=== PATIENT | female | born 1995 | race Two or more races ===

== ENCOUNTER 2024-04-29 01:02 | Emergency (ER) | payer MEDICAID, SELFPAY ==
[2024-04-29 01:02] VITALS: BMI 26.1
[2024-04-29 01:24] VITALS: BP 121/72; PULSE 110; RESP 18; TEMP 36.6; O2SAT 98
--- NOTE | 2024-04-29 01:31 | EKG_ITS ---
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
[2024-04-29] MEDS: DEXAMETHASONE SOD PHOS INJ 10 MG/ML VIAL PO (01:36)
--- NOTE | 2024-04-29 01:38 | XR_ITS ---
Examination: AP chest single view Technique one AP portable upright chest single view Exam date and time: April 29, 2024 0145 hours Comparison August 25, 2023 INDICATIONS: Onset shortness of breath today FINDINGS: Normal heart size. Lungs are clear. The osseous structures are intact IMPRESSION: No active disease
[2024-04-29 02:17] LABS: Basophils # (Auto) 0.1 Thou/mm3 (0.0-0.2); Basophils % (Auto) 1 % (0-2.5); Eosinophils # (Auto) 0.1 Thou/mm3 (0.0-0.5); Eosinophils % (Auto) 1 % (0-10); Hematocrit 34.3 % (36.0-46.0); Hemoglobin 11.3 g/dL (12.0-16.0); Immature Granulocytes % (Auto) 0 % (0-0); Immature Granulocytes Auto 0.02 Thou/mm3 (0.00-0.00); Lymphocytes # (Auto) 2.7 Thou/mm3 (1.0-4.8); Lymphocytes % (Auto) 26 % (10-50); Mean Corpuscular HGB Conc 32.9 g/dl (31.0-37.0); Mean Corpuscular Hemoglobin 30.5 pg (25.0-35.0); Mean Corpuscular Volume 93 fL (80-100); Monocytes # (Auto) 0.6 Thou/mm3 (0.0-0.8); Monocytes % (Auto) 6 % (0-12); Neutrophils # (Auto) 6.7 Thou/mm3 (1.8-7.7); Neutrophils % (Auto) 66 % (37-80); Nucleated Red Blood Cell % 0 /100 WBC (0); Platelet Count 375 Thou/mm3 (140-440); White Blood Count 10.3 Thou/mm3 (3.6-11.0)
[2024-04-29 02:30] LABS: Alanine Aminotransferase 17 U/L (10-49); Albumin, Serum 4.7 gm/dL (3.5-5.0); Albumin/Globulin Ratio 1.7 (1.2-2.2); Alkaline Phosphatase 58 U/L (46-116); Anion Gap 8 (7-16); Aspartate Amino Transferase 17 U/L (0-34); BUN/Creatinine Ratio 13 Ratio (12-20); Bilirubin,Total 0.3 mg/dL (0.3-1.2); Blood Urea Nitrogen 10 mg/dL (9-23); Calcium 10.1 mg/dL (8.3-10.6); Calcium (Corrected) 10.1 mg/dL (8.5-10.1); Carbon Dioxide 26.8 mMol/L (20.0-31.0); Chloride 103 mMol/L (98-107); Creatinine (Component) 0.8 mg/dL (0.6-1.3); Globulin 2.7 gm/dL (2.3-3.5); Glucose 76 mg/dL (74-106); Osmolality,Calculated 273 (275-295); Potassium 3.9 mMol/L (3.4-5.1); Sodium 138 mMol/L (136-145); Total Protein 7.4 gm/dL (5.7-8.2); Troponin I < 0.020 ng/mL (0.0-0.045); eGFR > 60 See Note
[2024-04-29 02:33] LABS: D-Dimer < 250 ng/mL (<600)
[2024-04-29 03:28] VITALS: PULSE 93; RESP 18; O2SAT 99
[2024-04-29] MEDS: ALBUTEROL/IPRATROPIUM (Duoneb) RT SOL 3 ML NEBU 6 ML INH (03:28)
--- NOTE | 2024-04-29 05:41 | EDNOTE_ITS ---
ED Asthma RME/HPI General Chief Complaint: Shortness of Breath/Dyspnea Stated Complaint: SOB Time Seen by Provider: 04/29/24 01:30 Arrival date/time: 04/29/24 01:02 28F with history of astham presents to ED with 1 day of SOB and chest tightness. Limitations: no limitations Related Data Home Medications ?Medication ?Instructions ?Recorded ?Confirmed prenat.vits,hernesto,[id number] 1 tab PO QDAY 01/19/23 01/19/23 amoxicillin 875 mg-potassium tab 02/16/23 clavulanate 125 mg tablet clotrimazole-betamethasone 1 applic topical 02/16/23 %-0.05 % topical cream ferrous sulfate 325 mg (65 mg mg 02/16/23 iron) tablet (FeroSul) vitamins no.170-iron 1 tab PO QDAY 02/16/23 02/16/23 fumarate 27 mg-folic acid 1 mg tablet (DermacinRx Prenatrix) Previous Rx's ?Medication ?Instructions ?Recorded hydrocodone 5 mg-acetaminophen 325 1 tab PO Q6H PRN pain #14 tabs 07/09/23 mg tablet ibuprofen 800 mg tablet 800 mg PO Q8H PRN pain #20 tabs 07/09/23 ondansetron 4 mg disintegrating 4 mg PO Q8H PRN nausea and 08/24/23 tablet vomiting #10 tabs pantoprazole 20 mg tablet,delayed 20 mg PO QDAY #30 tabs 08/25/23 release (Protonix) ondansetron 4 mg disintegrating 4 mg PO Q6H PRN nausea and 08/26/23 tablet vomiting #14 tabs albuterol sulfate 90 mcg/actuation 2 puff inhalation Q6H PRN 04/29/24 aerosol inhaler (Ventolin HFA) shortness of breath or wheezing #8.5 grams Allergies Allergy/AdvReac Type Severity Reaction Status Date / Time No Known Allergies Allergy Verified 08/25/23 11:24 Review of Systems Review of Systems Systems Reviewed: All systems reviewed, normal except as documented Constitutional Constitutional: Reports system reviewed and no additional complaints, except as documented, Denies fever(s) and Denies headache(s) ENT Ears, Nose, Mouth, and Throat: Denies disequilibrium and Denies headache(s) Cardiovascular Cardiovascular: Reports system reviewed and no additional complaints, except as documented, Reports as per HPI, Reports chest pain (tightness) and Reports dyspnea Respiratory Respiratory: Reports system reviewed and no additional complaints, except as documented, Reports as per HPI, Denies cough and Reports dyspnea Gastrointestinal Gastrointestinal: Reports system reviewed and no additional complaints, except as documented, Denies abdominal pain, Denies nausea and Denies vomiting Neurologic Neurologic: Reports system reviewed and no additional complaints, except as documented, Denies confusion, Denies disequilibrium and Denies headache(s) Psychiatric Psychiatric: Denies confusion Past Medical History Past Medical History NEUROLOGIC: Negative Neurological Disorders or Seizures CARDIAC: Positive Cardiac Arrhythmia and Angina; Negative Cardiac Disorders or Congestive Heart Failure RESPIRATORY: Negative Chronic Obstructive Pulmonary Disease (COPD) or Asthma GASTROINTESTINAL: Positive Gastrointestinal Disorders and Obesity GENITOURINARY: Negative Genitourinary Disorders or Renal Disease REPRODUCTIVE: Positive Previous Pregnancies; Negative Endometriosis or Pelvic Inflammatory Disease MUSCULOSKELETAL: Negative Musculoskeletal Disorders ENDOCRINE: Negative Endocrine Disorders, Diabetes Mellitus Type 1 or Diabetes Mellitus Type 2 HEMATOLOGIC: Negative Blood Disorders or Sickle Cell Disease OTHER HISTORY: Positive Hospitalization; Negative Autoimmune Disease, Down Syndrome, Developmental Delay, Shingles, Falls, Blood Transfusions, Blood Transfusion Reaction, Anesthesia Reactions, Chemotherapy, Hyperbaric Therapy, MRSA, VRSA, Vancomycin-Resistant Enterococci, Clostridium Difficile or Cancer Family History FAMILY HISTORY: Positive Family Psychiatric Problems, Family Respiratory Disorders, Family Cancer and Family Surgery; Negative Family Cardiac Disorders, Family Gastrointestinal Problems or Family Anesthesia Reaction Surgical History SURGICAL: Positive Section; Negative Cardiac Surgery, Open Heart Surgery, Coronary Artery Bypass Graft, Endocrine Surgery, Thyroidectomy, Ear Surgery, Abdominal Surgery, Nephrectomy, Joint Replacement, Neurologic Surgery, Brain Shunt or Mastectomy Social History SMOKING STATUS: Never smoker SECOND HAND EXPOSURE: No SUBSTANCE USE: does not use ED Exam General Limitations: Present no limitations General appearance: Present alert and in no apparent distress Head Head exam: Present atraumatic Eye Eye exam: Present normal appearance, PERRL and EOMI ENT ENT exam: Present normal exam, normal oropharynx and mucous membranes moist Neck Neck exam: Present normal inspection, full ROM and trachea midline Chest Chest inspection: Present normal inspection and symmetric chest wall rise Respiratory Respiratory exam: Present normal lung sounds bilaterally and prolonged expiratory phase Cardiovascular Cardiovascular exam: Present regular rate, normal rhythm and normal heart sounds Abdominal Exam Abdominal exam: Present soft and normal bowel sounds Extremities Exam Extremities exam: Present normal inspection and full ROM Back Exam Back exam: Present normal inspection and full ROM Neurological Exam Neurological exam: Present alert, oriented X3 and CN II-XII intact Psychiatric Psychiatric exam: Present normal affect and normal mood Skin Skin exam: Present warm, dry, intact and normal color Course Quality Measures none Orders Category Date Time Status EKG (ED ONLY) *Do not use* NOW Care 04/29/24 01:31 Active EKG (ED Only) Stat Exams 04/29/24 01:31 Draft XR chest 1V portable Stat Exams 04/29/24 01:38 Taken CBC Stat Lab 04/29/24 01:51 Completed CMP [Comprehensive Metabolic Panel] Stat Lab 04/29/24 01:51 Completed D-Dimer Stat Lab 04/29/24 01:51 Completed Troponin I Stat Lab 04/29/24 01:51 Completed Albuterol/Ipratr Rt Kelley [Duoneb Rt Kelley] Med 04/29/24 03:17 Discontinued 6 ml INH X1 ONE Dexamethasone Inj [Decadron Inj] Med 04/29/24 01:31 Discontinued 10 mg PO X1 ONE Vital Signs Vital signs: Vital Signs Temperature 97.9 F 04/29/24 01:24 Pulse Rate 110 H 04/29/24 01:24 Respiratory Rate 18 04/29/24 01:24 Blood Pressure 121/72 04/29/24 01:24 Pulse Oximetry (%) 98 04/29/24 01:24 Oxygen Delivery Method Room Air 04/29/24 01:24 Asthma MDM Narrative MDM Narrative:: 28F with history of astham presents to ED with 1 day of SOB and chest tightness. Physical exam reveals clear ENT and lungs. Prolonged expiration. Patient is afebrile, calm, and alert. EKG is NSR. No leukocytosis. Mild anemia. Normal trop and D-dimer. Wet CXR read normal pending official report. Meds relieved symptoms. Patient data External records reviewed:: [facility] previous records Clinical information provided by:: patient Social determinants that could affect healthcare access:: none Patient has the following chronic illnesses:: asthma How is presenting disease/condition affected by chronic disease/condition?: exacerbated by Evaluation data The following diagnostics were reviewed and interpreted by me:: lab results, ra diology exam(s) and EKG tracing(s) Lab and/or radiology exams considered but not ordered:: ordered Interpretation Summary: above Medications / Prescriptions Medications or Prescriptions considered but not ordered:: ordered Medication administrations:: Medication Administration History Discontinued Medications Albuterol/Ipratropium (Albuterol/Ipratropium (Duoneb) Rt Kelley 3 Ml Nebu) 6 ml INH X1 ONE Stop: 04/29/24 03:18 Last Admin: 04/29/24 03:28 Dose: 6 ml Documented By: NE Dexamethasone Sodium Phosphate (Dexamethasone Sod Phos Inj 10 Mg/Ml Vial) 10 mg PO X1 ONE Stop: 04/29/24 01:32 Last Admin: 04/29/24 01:36 Dose: 10 mg Documented By: DB Comments: Med given PO Consultations Consultation(s) initiated? (list below): No Diagnosis Differential diagnosis asthma: Acute exacerbation, Status asthmaticus, Acute asthmatic bronchitis, PE, Pneumonia, COPD exacerbation, Pulmonary edema systolic, Pulmonary edema dystolic, ARDS, Pneumothorax and Foreign body in trachea Most likely diagnosis given after review of the tests above:: asthma exacerbation Admission Indicated Admission indicated?: not indicated Admission Request Was there a request for admission?: No Disposition Plan Disposition Plan: Discharge Discharge Attestation Discharge Attestation: The patient and all family members were given an opportunity to ask questions and understood the discharge instructions. Discharge instructions specifically effects, indications for sooner follow up or return to the emergency department, and the expected course of current diagnosis. Patient condition: Stable Discharge Plan Plan Patient Disposition: HOME (Self Care) Disposition Comment: Stable Prescriptions/Referrals Prescriptions/Med Rec: New albuterol sulfate [Ventolin HFA] 90 mcg/actuation HFA aerosol inhaler 2 puff inhalation Q6H PRN (Reason: shortness of breath or wheezing) Qty: 8.5 0RF No Action ferrous sulfate [FeroSul] 325 mg (65 mg iron) tablet Patient Comments: TAKE ONE TABLET BY MOUTH EVERY DAY clotrimazole-betamethasone 1-0.05 % cream TOPICAL Patient Comments: APPLY topically EVERY EVENING FOR TWO WEEKS TO THE affected AND surrounding AREAS of SKIN amoxicillin-pot clavulanate 875-125 mg tablet Patient Comments: TAKE ONE TABLET BY MOUTH EVERY TWELVE HOURS DermacinRx Prenatrix 27 mg iron- 1 mg tablet 1 tab PO QDAY Patient Comments: TAKE ONE TABLET BY MOUTH EVERY DAY VITAMIN ibuprofen 800 mg tablet 800 mg PO Q8H PRN (Reason: pain) Qty: 20 0RF hydrocodone-acetaminophen 5-325 mg tablet 1 tab PO Q6H MDD 3 PRN (Reason: pain) Qty: 14 0RF ondansetron 4 mg tablet,disintegrating 4 mg PO Q8H PRN (Reason: nausea and vomiting) Qty: 10 0RF pantoprazole [Protonix] 20 mg tablet,delayed release (DR/EC) 20 mg PO QDAY Qty: 30 0RF prenat.vits,hernesto,[id number]-[id number]-tyffs Tablet 1 tab PO QDAY ondansetron 4 mg tablet,disintegrating 4 mg PO Q6H PRN (Reason: nausea and vomiting) Qty: 14 0RF Problem List Clinical Impression: Asthma with exacerbation Patient/Caregiver Discharge Instructions Additional Instructions: Please follow-up with PCP within 24-48 hours and return immediately if symptoms worsen. Print Language: Algerian Stand Alone Forms: Patient Portal Info Letter BELÉN/GIOVANNI Supervising Physician BELÉN/GIOVANNI Supervising Physician: Dr. King
== END 2024-04-29 04:22 | disposition home or self-care (01) ==
LOC: SERX 05:19
PROVIDERS: Physician Assistant; Emergency Provider Emergency Medicine; PCP Physician Assistant Medical
DX: J45.901 Unspecified asthma with (acute) exacerbation (principal); I49.8 Other specified cardiac arrhythmias
CPT/HCPCS: 36415; 71045; 80053; 84484; 85025; 85379; 93005; 94640; 99283; A9270; J1100

== ENCOUNTER 2024-05-05 14:17 | Emergency (ER) | payer MEDICAID, SELFPAY ==
[2024-05-05 14:26] VITALS: BP 111/74; PULSE 71; RESP 20; TEMP 36.4; O2SAT 100; BMI 26.1
--- NOTE | 2024-05-05 14:26 | XR_ITS ---
Examination: CT abdomen and pelvis without contrast. Coronal 3-D reconstructions. Sagittal 2-D reconstructions. Date and time of exam:May 05, 2024 1532 hours Comparison March 12, 2023 INDICATIONS: Right-sided flank pain beginning 3 days ago CTDI: vol (mGy): 6.42 DLP: (mGycm): 350 Technique: Axial images of the abdomen have been obtained, 3 mm slice thickness Intravenous contrast material has not been administered. Low dose protocols were performed. One or more of the following dose reduction techniques were used; automated exposure control, adjustment of the mA and/or KV according to patient size, use of iterative reconstruction technique. Findings: Fatty infiltration throughout the liver, no focal liver lesions No gallstones No pancreatic or adrenal mass No renal or ureteral calculi, no hydronephrosis Aorta normal size Normal appendix No bowel obstruction No diverticulitis Anteverted uterus No adnexal mass Contracted urinary bladder IMPRESSION: No renal or ureteral calculi, no hydronephrosis Normal appendix No bladder mass or bladder calculi
[2024-05-05 14:53] LABS: Collection Type, Urine Clean Catch
[2024-05-05 14:54] LABS: Basophils # (Auto) 0.1 Thou/mm3 (0.0-0.2); Basophils % (Auto) 1 % (0-2.5); Eosinophils # (Auto) 0.1 Thou/mm3 (0.0-0.5); Eosinophils % (Auto) 1 % (0-10); Hematocrit 36.8 % (36.0-46.0); Hemoglobin 12.3 g/dL (12.0-16.0); Immature Granulocytes % (Auto) 0 % (0-0); Immature Granulocytes Auto 0.02 Thou/mm3 (0.00-0.00); Lymphocytes # (Auto) 2.8 Thou/mm3 (1.0-4.8); Lymphocytes % (Auto) 30 % (10-50); Mean Corpuscular HGB Conc 33.4 g/dl (31.0-37.0); Mean Corpuscular Hemoglobin 30.1 pg (25.0-35.0); Mean Corpuscular Volume 90 fL (80-100); Monocytes # (Auto) 0.6 Thou/mm3 (0.0-0.8); Monocytes % (Auto) 7 % (0-12); Neutrophils # (Auto) 5.8 Thou/mm3 (1.8-7.7); Neutrophils % (Auto) 62 % (37-80); Nucleated Red Blood Cell % 0 /100 WBC (0); Platelet Count 341 Thou/mm3 (140-440); RDW Standard Deviation 43.4 fL (36.4-46.3); Red Blood Count 4.08 Miln/mm3 (4.00-5.20); White Blood Count 9.3 Thou/mm3 (3.6-11.0)
--- NOTE | 2024-05-05 15:00 | PD.EDABDPN ---
ED Abdominal Pain RME/HPI General Chief Complaint: Back Pain/Injury Stated complaint: RIGHT SIDED FLANK PAIN, NAUSEA Time seen by provider: 05/05/24 14:18 Arrival date/time: 05/05/24 14:17 RME / HPI RME / HPI narrative: This section includes all my notes and documentations, including HPI, PE, and ED course. Jeronimo Obrien MD HPI: 28-year-old female here with a couple day history of right flank pain. No fever or chills. No nausea or vomiting. Urine has been dark and cloudy. No dysuria or other urinary symptoms. No other complaints. ROS: All negative except as documented in HPI. Physical Exam: General: Alert and oriented. No acute distress when remaining still. Eyes: Conjunctivae and lids clear. ENT: No nasal congestion. Neck: Supple. Heart: RRR. Lungs: No respiratory distress. Good air movement. No rhonchi, wheezing, rales. Abdomen: Soft and nontender. Normal bowel sounds. No distension. No rebound or guarding. Back: No CVA tenderness. Skin: Warm and dry. Neuro: Alert and oriented X 3. I reviewed all diagnostic test results. My review of the abdominal CT report is no acute findings. Blood tests unremarkable. UA showed positive nitrite and leukocyte Estrace and WBC and bacteria. At this point, diagnoses include right pyelonephritis. Treatment here included Rocephin 1 g IM. Recommended a trial of treatment at home. Based on my best medical judgment, made decision no further evaluation or treatment indicated at this time. Patient understands and agrees to the discharge instructions customized and printed, see below. Discharge instructions from Dr. Obrien: 1. After evaluation, you have left kidney infection. 2. Take cefdinir to kill the germs causing the infection.? Increase oral fluid to flush it out.? Maintain clear urine.? If dark or yellow, increase oral fluid. 3. See a private doctor on 05/09/2024 for recheck.? Ask to check the final urine culture results from today to make sure cefdinir doesn't need to be changed due to resistance. 4. Seek immediate medical care with worsening, fever, or with any concerns. Jeronimo Obrien MD Related Data Home Medications ?Medication ?Instructions ?Recorded ?Confirmed prenat.vits,hernesto,iwr-[id number] 1 tab PO QDAY 01/19/23 01/19/23 amoxicillin 875 mg-potassium tab 02/16/23 clavulanate 125 mg tablet clotrimazole-betamethasone 1 applic topical 02/16/23 %-0.05 % topical cream ferrous sulfate 325 mg (65 mg mg 02/16/23 iron) tablet (FeroSul) vitamins no.170-iron 1 tab PO QDAY 02/16/23 02/16/23 fumarate 27 mg-folic acid 1 mg tablet (DermacinRx Prenatrix) Previous Rx's ?Medication ?Instructions ?Recorded hydrocodone 5 mg-acetaminophen 325 1 tab PO Q6H PRN pain #14 tabs 07/09/23 mg tablet ibuprofen 800 mg tablet 800 mg PO Q8H PRN pain #20 tabs 07/09/23 ondansetron 4 mg disintegrating 4 mg PO Q8H PRN nausea and 08/24/23 tablet vomiting #10 tabs pantoprazole 20 mg tablet,delayed 20 mg PO QDAY #30 tabs 08/25/23 release (Protonix) ondansetron 4 mg disintegrating 4 mg PO Q6H PRN nausea and 08/26/23 tablet vomiting #14 tabs albuterol sulfate 90 mcg/actuation 2 puff inhalation Q6H PRN 04/29/24 aerosol inhaler (Ventolin HFA) shortness of breath or wheezing #8.5 grams cefdinir 300 mg capsule 300 mg PO BID #14 caps 05/05/24 Allergies Allergy/AdvReac Type Severity Reaction Status Date / Time No Known Allergies Allergy Verified 08/25/23 11:24 Course Quality Measures none Orders Category Date Time Status CT abdomen pelvis wo con Stat Exams 05/05/24 14:26 Completed Amylase Stat Lab 05/05/24 14:48 Completed CBC Stat Lab 05/05/24 14:48 Completed CMP [Comprehensive Metabolic Panel] Stat Lab 05/05/24 14:48 Completed D-Dimer Stat Lab 05/05/24 14:48 Completed Lipase Stat Lab 05/05/24 14:48 Completed Magnesium Stat Lab 05/05/24 14:48 Completed UA [Urinalysis] Stat Lab 05/05/24 14:38 Completed cefTRIAXone [Rocephin] 1,000 mg Med 05/05/24 16:17 Discontinued Lidocaine 1% 20 ml [Xylocaine 1% 20 ML] 2.1 ml IM X1 Vital Signs Vital signs: Vital Signs Temperature 97.6 F 05/05/24 14:26 Pulse Rate 71 05/05/24 14:26 Respiratory Rate 20 05/05/24 14:26 Blood Pressure 111/74 05/05/24 14:26 Pulse Oximetry (%) 100 05/05/24 14:26 Oxygen Delivery Method Room Air 05/05/24 14:26 Abdominal Pain MDM Patient data External records reviewed:: [facility] previous records Clinical information provided by:: patient Social determinants that could affect healthcare access:: none Patient has the following chronic illnesses:: See chart How is presenting disease/condition affected by chronic disease/condition?: uneffected by Evaluation data The following diagnostics were reviewed and interpreted by me:: lab results and radiology exam(s) Lab and/or radiology exams considered but not ordered:: None Interpretation Summary: Pyelonephritis Medications / Prescriptions Medications or Prescriptions considered but not ordered:: None Medication administrations:: Medication Administration History Discontinued Medications Ceftriaxone Sodium 1,000 mg/ (Lidocaine HCl 2.1 ml) 0 mg IM X1 ONE Stop: 05/05/24 16:18 Last Admin: 05/05/24 16:26 Dose: 2.1 mg Documented By: MARRY Rocephin Consultations Consultation(s) initiated? (list below): No Diagnosis Differential diagnosis abdominal pain: acute appendicitis, calculus of kidney, constipation, diverticulitis, endometriosis, gastroenteritis, pancreatitis, small bowel obstruction and other (UTI, pyelonephritis) Most likely diagnosis given after review of the tests above:: Pyelonephritis Admission Indicated Admission indicated?: not indicated Explain why admission is indicated or not indicated:: Admission criteria not met Admission Request Was there a request for admission?: No Disposition Plan Disposition Plan: Discharge Discharge Attestation Discharge Attestation: The patient and all family members were given an opportunity to ask questions and understood the discharge instructions. Discharge instructions specifically effects, indications for sooner follow up or return to the emergency department, and the expected course of current diagnosis. Patient condition: Stable Discharge Plan Plan Patient Disposition: HOME (Self Care) Prescriptions/Referrals Prescriptions/Med Rec: New cefdinir 300 mg capsule 300 mg PO BID Qty: 14 0RF No Action ferrous sulfate [FeroSul] 325 mg (65 mg iron) tablet Patient Comments: TAKE ONE TABLET BY MOUTH EVERY DAY clotrimazole-betamethasone 1-0.05 % cream TOPICAL Patient Comments: APPLY topically EVERY EVENING FOR TWO WEEKS TO THE affected AND surrounding AREAS of SKIN amoxicillin-pot clavulanate 875-125 mg tablet Patient Comments: TAKE ONE TABLET BY MOUTH EVERY TWELVE HOURS DermacinRx Prenatrix 27 mg iron- 1 mg tablet 1 tab PO QDAY Patient Comments: TAKE ONE TABLET BY MOUTH EVERY DAY VITAMIN ibuprofen 800 mg tablet 800 mg PO Q8H PRN (Reason: pain) Qty: 20 0RF hydrocodone-acetaminophen 5-325 mg tablet 1 tab PO Q6H MDD 3 PRN (Reason: pain) Qty: 14 0RF ondansetron 4 mg tablet,disintegrating 4 mg PO Q8H PRN (Reason: nausea and vomiting) Qty: 10 0RF pantoprazole [Protonix] 20 mg tablet,delayed release (DR/EC) 20 mg PO QDAY Qty: 30 0RF albuterol sulfate [Ventolin HFA] 90 mcg/actuation HFA aerosol inhaler 2 puff inhalation Q6H PRN (Reason: shortness of breath or wheezing) Qty: 8.5 0RF prenat.vits,hernesto,[id number] Tablet 1 tab PO QDAY ondansetron 4 mg tablet,disintegrating 4 mg PO Q6H PRN (Reason: nausea and vomiting) Qty: 14 0RF Referrals: Delphine Little PA-C [Primary Care Provider] - In 1 week Problem List Clinical Impression: Pyelonephritis of right kidney Patient/Caregiver Discharge Instructions Discharge Activity: activity as tolerated Education Materials: ED Pyelonephritis, Female (Adult) Additional Instructions: Discharge instructions from Dr. Obrien: 1. After evaluation, you have left kidney infection. 2. Take cefdinir to kill the germs causing the infection.? Increase oral fluid to flush it out.? Maintain clear urine.? If dark or yellow, increase oral fluid. 3. See a private doctor on 05/09/2024 for recheck.? Ask to check the final urine culture results from today to make sure cefdinir doesn't need to be changed due to resistance. 4. Seek immediate medical care with worsening, fever, or with any concerns. Print Language: Estonian Stand Alone Forms: Sarah Award Info., Patient Portal Info Letter
[2024-05-05 15:19] LABS: Bacteria,Urine Rare; Bilirubin,Urine Negative (Negative); Blood,Urine 1+ (Negative); Color,Urine Lt-Yellow (Lt Yel-Yel); Glucose, Urine Negative (Negative); Ketones,Urine 2+ (Negative); Leukocyte Esterase,Urine Positive (Negative); Nitrite,Urine Positive (Negative); PH,Urine 5.5 (5.0-7.0); Protein,Urine 1+ (Neg - Trace); RBC,Urine 11 /hpf (0-3); Specific Gravity,Urine 1.019 (1.001-1.035); Squamous Epithelial Cell,Urine 3 /hpf (0-5); Urobilinogen,Urine Negative mg/dL (0.0-1.0); WBC,Urine 102 /hpf (0-5)
[2024-05-05 15:20] LABS: Alanine Aminotransferase 15 U/L (10-49); Albumin, Serum 4.9 gm/dL (3.5-5.0); Albumin/Globulin Ratio 1.7 (1.2-2.2); Alkaline Phosphatase 59 U/L (46-116); Amylase 40 U/L (30-118); Anion Gap 8 (7-16); Aspartate Amino Transferase 16 U/L (0-34); BUN/Creatinine Ratio 17 Ratio (12-20); Bilirubin,Total 0.5 mg/dL (0.3-1.2); Blood Urea Nitrogen 12 mg/dL (9-23); Calcium 9.7 mg/dL (8.3-10.6); Calcium (Corrected) 9.7 mg/dL (8.5-10.1); Carbon Dioxide 26.3 mMol/L (20.0-31.0); Chloride 102 mMol/L (98-107); Creatinine (Component) 0.7 mg/dL (0.6-1.3); Estimated Creatinine Clearance 89.2 mL/min (>60); Globulin 2.9 gm/dL (2.3-3.5); Glucose 72 mg/dL (74-106); Lipase 29 U/L (12-53); Osmolality,Calculated 270 (275-295); Potassium 3.6 mMol/L (3.4-5.1); Sodium 136 mMol/L (136-145); Total Protein 7.8 gm/dL (5.7-8.2); eGFR > 60 See Note
[2024-05-05 15:35] LABS: Clarity,Urine Hazy (Clear/Hazy)
[2024-05-05 15:57] LABS: D-Dimer < 250 ng/mL (<600)
[2024-05-05] MEDS: cefTRIAXone 1,000 MG, LIDOCAINE 1% 20 ML 2.1 ML IM (16:26)
== END 2024-05-05 18:18 | disposition home or self-care (01) ==
PROVIDERS: Emergency Provider Emergency Medicine; PCP Physician Assistant Medical
DX: N12 Tubulo-interstitial nephritis, not specified as acute or chronic (principal)
CPT/HCPCS: 36415; 74176; 80053; 81001; 82150; 83690; 83735; 85025; 85379; 87077; 87086; 87186; 96372; 99284; J0696; J3490

== ENCOUNTER 2024-06-09 08:44 | Emergency (ER) | payer MEDICAID, SELFPAY ==
[2024-06-09 08:57] VITALS: BP 107/69; PULSE 86; RESP 16; TEMP 36.9; O2SAT 100; BMI 26.2
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
[2024-06-09] MEDS: ACETAMINOPHEN 500 MG TABLET 1000 MG PO (09:48)
== END 2024-06-09 10:09 | disposition home or self-care (01) ==
PROVIDERS: Emergency Provider Emergency Medicine; PCP Physician Assistant Medical
DX: S79.922A Unspecified injury of left thigh, initial encounter (principal); S79.911A Unspecified injury of right hip, initial encounter; V89.9XXA Person injured in unspecified vehicle accident, initial encounter
CPT/HCPCS: 73501; 73552; 99283; A9270

== ENCOUNTER 2024-06-10 15:29 | Emergency (ER) | payer MEDICAID, SELFPAY ==
[2024-06-10 15:30] VITALS: BMI 27.1
[2024-06-10 15:37] VITALS: BP 108/58; PULSE 78; RESP 18; TEMP 36.8; O2SAT 100
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
[2024-06-10 16:47] LABS: Basophils # (Auto) 0.1 Thou/mm3 (0.0-0.2); Basophils % (Auto) 1 % (0-2.5); Eosinophils # (Auto) 0.1 Thou/mm3 (0.0-0.5); Eosinophils % (Auto) 1 % (0-10); Hematocrit 33.7 % (36.0-46.0); Immature Granulocytes % (Auto) 0 % (0-0); Immature Granulocytes Auto 0.02 Thou/mm3 (0.00-0.00); Lymphocytes # (Auto) 3.4 Thou/mm3 (1.0-4.8); Lymphocytes % (Auto) 42 % (10-50); Mean Corpuscular HGB Conc 32.6 g/dl (31.0-37.0); Mean Corpuscular Hemoglobin 28.7 pg (25.0-35.0); Mean Corpuscular Volume 88 fL (80-100); Monocytes # (Auto) 0.5 Thou/mm3 (0.0-0.8); Monocytes % (Auto) 6 % (0-12); Neutrophils % (Auto) 50 % (37-80); Nucleated Red Blood Cell % 0 /100 WBC (0); Platelet Count 294 Thou/mm3 (140-440); RDW Standard Deviation 44.8 fL (36.4-46.3); Red Blood Count 3.83 Miln/mm3 (4.00-5.20)
[2024-06-10 17:08] LABS: Alanine Aminotransferase 32 U/L (10-49); Albumin, Serum 4.5 gm/dL (3.5-5.0); Albumin/Globulin Ratio 1.7 (1.2-2.2); Alkaline Phosphatase 68 U/L (46-116); Anion Gap 6 (7-16); Aspartate Amino Transferase 29 U/L (0-34); BUN/Creatinine Ratio 22 Ratio (12-20); Bilirubin,Total 0.2 mg/dL (0.3-1.2); Blood Urea Nitrogen 13 mg/dL (9-23); Calcium 9.1 mg/dL (8.3-10.6); Calcium (Corrected) 9.1 mg/dL (8.5-10.1); Carbon Dioxide 28.8 mMol/L (20.0-31.0); Chloride 104 mMol/L (98-107); Creatinine (Component) 0.6 mg/dL (0.6-1.3); Estimated Creatinine Clearance 105.1 mL/min (>60); Globulin 2.6 gm/dL (2.3-3.5); Glucose 88 mg/dL (74-106); Osmolality,Calculated 276 (275-295); Potassium 3.7 mMol/L (3.4-5.1); Sodium 139 mMol/L (136-145); Total Protein 7.1 gm/dL (5.7-8.2); eGFR > 60 See Note
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
== END 2024-06-10 17:28 | disposition home or self-care (01) ==
PROVIDERS: Nurse Practitioner Primary Care; Emergency Provider Emergency Medicine; PCP Physician Assistant Medical
DX: Z04.1 Encounter for examination and observation following transport accident (principal); R51.9 Headache, unspecified; N93.9 Abnormal uterine and vaginal bleeding, unspecified; M54.2 Cervicalgia; R10.9 Unspecified abdominal pain
CPT/HCPCS: 36415; 70450; 71250; 72125; 74176; 80053; 85025; 99284

== ENCOUNTER 2024-08-28 03:58 | Emergency (ER) | payer MEDICAID, SELFPAY ==
[2024-08-28 03:59] VITALS: BMI 28.8
--- NOTE | 2024-08-28 04:01 | PD.EDABDPN ---
ED Abdominal Pain RME/HPI General Chief Complaint: Abdominal Pain Stated complaint: UPPER ABD PAIN, N/V X1 WEEK. Time seen by provider: 08/28/24 04:00 Arrival date/time: 08/28/24 03:58 RME / HPI RME / HPI narrative: This section includes all my notes and documentations, including HPI, PE, and ED course. Jeronimo Obrien MD HPI: 29-year-old female here with several days of severe upper abdominal pain. With nausea and vomiting. No hematemesis or coffee-ground emesis. No rectal bleeding or tarry stools. No history of abdominal surgery except cesareans. No urinary symptoms. No other complaints. ROS: All negative except as documented in HPI. Physical Exam: General: Alert and oriented. Appears uncomfortable. Eyes: Conjunctivae and lids clear. ENT: No nasal congestion. Neck: Supple. Heart: RRR. Lungs: No respiratory distress. Good air movement. No rhonchi, wheezing, rales. Abdomen: Soft with epigastric and RUQ tenderness. Normal bowel sounds. No distension. No rebound or guarding. Back: No CVA tenderness. Skin: Warm and dry. Neuro: Alert and oriented X 3. I ordered Zofran ODT 4 mg and two Tylenol #3 and diagnostic tests. At 6 AM , the care of the patient was transferred to Dr. Bridges. Jeronimo Obrien MD Related Data Home Medications ?Medication ?Instructions ?Recorded ?Confirmed prenat.vits,hernesto,[id number] 1 tab PO QDAY 01/19/23 01/19/23 amoxicillin 875 mg-potassium tab 02/16/23 clavulanate 125 mg tablet clotrimazole-betamethasone 1 applic topical 02/16/23 %-0.05 % topical cream ferrous sulfate 325 mg (65 mg mg 02/16/23 iron) tablet (FeroSul) vitamins no.170-iron 1 tab PO QDAY 02/16/23 02/16/23 fumarate 27 mg-folic acid 1 mg tablet (DermacinRx Prenatrix) Previous Rx's ?Medication ?Instructions ?Recorded hydrocodone 5 mg-acetaminophen 325 1 tab PO Q6H PRN pain #14 tabs 07/09/23 mg tablet ibuprofen 800 mg tablet 800 mg PO Q8H PRN pain #20 tabs 07/09/23 ondansetron 4 mg disintegrating 4 mg PO Q8H PRN nausea and 08/24/23 tablet vomiting #10 tabs pantoprazole 20 mg tablet,delayed 20 mg PO QDAY #30 tabs 08/25/23 release (Protonix) ondansetron 4 mg disintegrating 4 mg PO Q6H PRN nausea and 08/26/23 tablet vomiting #14 tabs albuterol sulfate 90 mcg/actuation 2 puff inhalation Q6H PRN 04/29/24 aerosol inhaler (Ventolin HFA) shortness of breath or wheezing #8.5 grams cefdinir 300 mg capsule 300 mg PO BID #14 caps 05/05/24 cefdinir 300 mg capsule 300 mg PO BID #14 caps 05/07/24 amoxicillin 875 mg-potassium 1 tab PO Q12H #14 tabs 05/13/24 clavulanate 125 mg tablet cyclobenzaprine 5 mg tablet 5 mg PO TID PRN muscle spasm #20 06/09/24 tabs ibuprofen 800 mg tablet (IBU) 800 mg PO Q8H #20 tabs 06/09/24 Allergies Allergy/AdvReac Type Severity Reaction Status Date / Time No Known Allergies Allergy Verified 08/28/24 04:02 Course Quality Measures none Orders Category Date Time Status US gall bladder Stat Exams 08/28/24 04:22 Ordered Amylase Stat Lab 08/28/24 04:22 Ordered Bilirubin,Direct Stat Lab 08/28/24 04:22 Ordered CBC Stat Lab 08/28/24 04:23 Ordered CMP [Comprehensive Metabolic Panel] Stat Lab 08/28/24 04:22 Ordered HCG Qualitative,Urine Stat Lab 08/28/24 04:23 Ordered HCG,Qualitative Serum Stat Lab 08/28/24 04:22 Ordered Lipase Stat Lab 08/28/24 04:22 Ordered Magnesium Stat Lab 08/28/24 04:22 Ordered UA, C/S IF [Urinalysis, C/S if Indicated] Stat Lab 08/28/24 04:23 Ordered ACETAMINOPHEN w/COD 300-30 [Tylenol w/Cod #3] Med 08/28/24 04:22 Once 2 tab PO X1 ONE Ondansetron Odt [Zofran Odt] Med 08/28/24 04:22 Once 4 mg PO X1 ONE Vital Signs Vital signs: Vital Signs Temperature 97.5 F 08/28/24 04:06 Pulse Rate 85 08/28/24 04:06 Respiratory Rate 19 08/28/24 04:06 Blood Pressure 112/74 08/28/24 04:06 Pulse Oximetry (%) 97 08/28/24 04:06 Oxygen Delivery Method Room Air 08/28/24 04:06 Abdominal Pain MDM Patient data External records reviewed:: [facility] previous records Clinical information provided by:: patient and spouse Social determinants that could affect healthcare access:: none Patient has the following chronic illnesses:: None How is presenting disease/condition affected by chronic disease/condition?: no chronic disease Evaluation data The following diagnostics were reviewed and interpreted by me:: other (specify) (Diagnostic test results are pending.) Lab and/or radiology exams considered but not ordered:: None Interpretation Summary: Diagnostic test results are pending. Medications / Prescriptions Medications or Prescriptions considered but not ordered:: None Medication administrations:: Medication Administration History Acetaminophen/Codeine Phosphate (Acetaminophen W/Cod 300-30 Tablet) 2 tab PO X1 ONE Stop: 08/28/24 04:23 Ondansetron HCl (Ondansetron Odt 4 Mg Tabrap) 4 mg PO X1 ONE; Protocol Stop: 08/28/24 04:23 Zofran ODT and two Tylenol #3 Consultations Consultation(s) initiated? (list below): No Diagnosis Differential diagnosis abdominal pain: constipation, endometriosis, gastroenteritis, pancreatitis and other (GERD, PUD, gastritis, biliary colic) Most likely diagnosis given after review of the tests above:: Waiting for diagnostic test results. Admission Indicated Admission indicated?: not indicated Explain why admission is indicated or not indicated:: Waiting for diagnostic test results. Admission Request Was there a request for admission?: No Disposition Plan Disposition Plan: other (specify) (Care of the patient was transferred to Dr. Bridges. ) Discharge Plan Prescriptions/Referrals Prescriptions/Med Rec: No Action ferrous sulfate [FeroSul] 325 mg (65 mg iron) tablet Patient Comments: TAKE ONE TABLET BY MOUTH EVERY DAY clotrimazole-betamethasone 1-0.05 % cream TOPICAL Patient Comments: APPLY topically EVERY EVENING FOR TWO WEEKS TO THE affected AND surrounding AREAS of SKIN amoxicillin-pot clavulanate 875-125 mg tablet Patient Comments: TAKE ONE TABLET BY MOUTH EVERY TWELVE HOURS DermacinRx Prenatrix 27 mg iron- 1 mg tablet 1 tab PO QDAY Patient Comments: TAKE ONE TABLET BY MOUTH EVERY DAY VITAMIN ibuprofen 800 mg tablet 800 mg PO Q8H PRN (Reason: pain) Qty: 20 0RF hydrocodone-acetaminophen 5-325 mg tablet 1 tab PO Q6H MDD 3 PRN (Reason: pain) Qty: 14 0RF ondansetron 4 mg tablet,disintegrating 4 mg PO Q8H PRN (Reason: nausea and vomiting) Qty: 10 0RF pantoprazole [Protonix] 20 mg tablet,delayed release (DR/EC) 20 mg PO QDAY Qty: 30 0RF albuterol sulfate [Ventolin HFA] 90 mcg/actuation HFA aerosol inhaler 2 puff inhalation Q6H PRN (Reason: shortness of breath or wheezing) Qty: 8.5 0RF cefdinir 300 mg capsule 300 mg PO BID Qty: 14 0RF cefdinir 300 mg capsule 300 mg PO BID Qty: 14 0RF amoxicillin-pot clavulanate 875-125 mg tablet 1 tab PO Q12H Qty: 14 0RF ibuprofen [IBU] 800 mg tablet 800 mg PO Q8H Qty: 20 0RF cyclobenzaprine 5 mg tablet 5 mg PO TID PRN (Reason: muscle spasm) Qty: 20 0RF prenat.vits,hernesto,[id number] Tablet 1 tab PO QDAY ondansetron 4 mg tablet,disintegrating 4 mg PO Q6H PRN (Reason: nausea and vomiting) Qty: 14 0RF Problem List Clinical Impression: Abdominal pain Patient/Caregiver Discharge Instructions Print Language: Kyrgyz
[2024-08-28 04:06] VITALS: BP 112/74; PULSE 85; RESP 19; TEMP 36.4; O2SAT 97
--- NOTE | 2024-08-28 04:22 | XR_ITS ---
Examination: Abdomen sonogram, Limited Date and time of exam: August 28, 2024 0504 hours INDICATIONS: Right upper abdominal pain and tenderness beginning yesterday Technique: Real-time carl scale transabdominal sonographic images of the upper abdomen obtained. Findings: Cholelithiasis Normal gallbladder wall 0.21 cm Common bile ducts are 0.3 cm Pancreatic head due to 0.9 cm Liver 12.5 cm smooth contour and no focal liver lesions Normal hepatopedal portal venous flow Patent IVC IMPRESSION: Cholelithiasis, negative for cholecystitis
[2024-08-28] MEDS: ONDANSETRON ODT 4 MG TABRAP PO (04:35)
[2024-08-28] MEDS: ACETAMINOPHEN w/COD 300-30 TABLET 2 TAB PO (05:28)
--- NOTE | 2024-08-28 06:01 | PRELIM_ITS ---
Gallbladder ultrasound. August 28, 2024 0504 hours Clinical history: RUQ tenderness Comparison: None Findings: There is fatty infiltration of liver. There is hepatopetal flow within the portal vein. No space-occupying hepatic mass or intrahepatic biliary dilatation noted. There is a 1.4 cm gallstone within the dependent gallbladder. Gallbladder thickness is normal measuring 2 mm. Common bile duct is normal ca liber measuring 3 mm. Pancreas as visualized is unremarkable. Pleural effusions suggested. Impression: 1. Cholelithiasis without evidence of acute cholecystitis. If clinically necessary further evaluation may be performed at nuclear medicine hepatobiliary scan. 2. Fatty liver. 3. Pleural effusions suggested. Recommend correlation with chest radiograph. Report Electronically Signed By: Juan R Estrada 08/28/2024 6:00:53 AM [EST]
[2024-08-28 06:07] LABS: Basophils % (Auto) 0 % (0-2.5); Eosinophils # (Auto) 0.1 Thou/mm3 (0.0-0.5); Eosinophils % (Auto) 1 % (0-10); Hematocrit 36.5 % (36.0-46.0); Hemoglobin 11.8 g/dL (12.0-16.0); Immature Granulocytes % (Auto) 0 % (0-0); Immature Granulocytes Auto 0.02 Thou/mm3 (0.00-0.00); Lymphocytes # (Auto) 0.6 Thou/mm3 (1.0-4.8); Lymphocytes % (Auto) 5 % (10-50); Mean Corpuscular HGB Conc 32.3 g/dl (31.0-37.0); Mean Corpuscular Hemoglobin 27.4 pg (25.0-35.0); Mean Corpuscular Volume 85 fL (80-100); Monocytes # (Auto) 0.5 Thou/mm3 (0.0-0.8); Monocytes % (Auto) 4 % (0-12); Neutrophils # (Auto) 10.5 Thou/mm3 (1.8-7.7); Neutrophils % (Auto) 90 % (37-80); Nucleated Red Blood Cell % 0 /100 WBC (0); Platelet Count 291 Thou/mm3 (140-440); RDW Standard Deviation 51.7 fL (36.4-46.3); Red Blood Count 4.31 Miln/mm3 (4.00-5.20); White Blood Count 11.7 Thou/mm3 (3.6-11.0)
[2024-08-28 06:33] LABS: Alanine Aminotransferase 28 U/L (10-49); Albumin/Globulin Ratio 1.5 (1.2-2.2); Alkaline Phosphatase 56 U/L (46-116); Amylase 68 U/L (30-118); Anion Gap 7 (7-16); Aspartate Amino Transferase 26 U/L (0-34); BUN/Creatinine Ratio 28 Ratio (12-20); Bilirubin,Direct 0.1 mg/dL (0.0-0.3); Bilirubin,Total 0.5 mg/dL (0.3-1.2); Blood Urea Nitrogen 17 mg/dL (9-23); Calcium 8.5 mg/dL (8.3-10.6); Calcium (Corrected) 8.5 mg/dL (8.5-10.1); Chloride 105 mMol/L (98-107); Creatinine (Component) 0.6 mg/dL (0.6-1.3); Estimated Creatinine Clearance 108.3 mL/min (>60); Globulin 2.7 gm/dL (2.3-3.5); Glucose 97 mg/dL (74-106); Lipase 31 U/L (12-53); Magnesium 1.7 mg/dL (1.6-2.6); Osmolality,Calculated 279 (275-295); Potassium 4.5 mMol/L (3.4-5.1); Sodium 139 mMol/L (136-145); Total Protein 6.7 gm/dL (5.7-8.2); eGFR > 60 See Note
[2024-08-28 06:37] VITALS: BP 108/61; PULSE 74; RESP 18; TEMP 36.9; O2SAT 100
[2024-08-28 06:44] LABS: Collection Type, Urine Clean Catch
--- NOTE | 2024-08-28 06:57 | EDNOTE_ITS ---
Emergency Room Addendum Addendum Narrative: 0600: Care assumed from Dr. Obrien, the previous shift emergency physician. Past medical, surgical, social and family history reviewed. Vitals and home medications reviewed. I will assume the care of the patient at this time, pending US report and final disposition. Please refer to the emergency department record for history and examination from initial visit.?The following addendum documentation note is intended to reflect any pending information, findings, or radiology results not included in the patient?s initial chart. 0715: Patient reports she had had intermittent bouts of abdominal pain for about ~ 1 year that usually begins in the epigastric region. Reportedly has consulted with PCP who has referred her to see GI however states she has been given the run around and has yet to see GI. States she is treating symptoms with Omeprazole and Pepcid daily that usually provides relief. States in the last week the pain is not improved with Omeprazole, Pepcid, or Pepto Bismol and gradually worsening. We reviewed all the results, analysis, and treatment plans. Advised patient take two 500mg Tylenol and two 200mg Advil gel caps together for pain. Patient is amenable to discharge with instructions to follow up with PCP for referral to see general surgeon. Strict return precautions were outlined. Patient was discharged in stable condition. RADIOLOGY Ordering Physician: Date of Service: Procedure(s): Accession Number(s): cc: ~ Gallbladder ultrasound. August 28, 2024 0504 hours Clinical history: RUQ tenderness Comparison: None Findings: There is fatty infiltration of liver. There is hepatopetal flow within the portal vein. No space-occupying hepatic mass or intrahepatic biliary dilatation noted. There is a 1.4 cm gallstone within the dependent gallbladder. Gallbladder thickness is normal measuring 2 mm. Common bile duct is normal caliber measuring 3 mm. Pancreas as visualized is unremarkable. Pleural effusions suggested. Impression: 1. Cholelithiasis without evidence of acute cholecystitis. If clinically necessary further evaluation may be performed at nuclear medicine hepatobiliary scan. 2. Fatty liver. 3. Pleural effusions suggested. Recommend correlation with chest radiograph. Report Electronically Signed By: Juan R Estrada 08/28/2024 6:00:53 AM [EST]
[2024-08-28 07:00] LABS: Bilirubin,Urine Negative (Negative); Blood,Urine Negative (Negative); Clarity,Urine Clear (Clear/Hazy); Color,Urine Lt-Yellow (Lt Yel-Yel); Culture Indicated,Urine Not Indicated; Glucose, Urine Negative (Negative); Ketones,Urine Negative (Negative); Leukocyte Esterase,Urine Negative (Negative); Nitrite,Urine Negative (Negative); PH,Urine 8.5 (5.0-7.0); Protein,Urine Trace (Neg - Trace); RBC,Urine 2 /hpf (0-3); Specific Gravity,Urine 1.031 (1.001-1.035); Squamous Epithelial Cell,Urine 1 /hpf (0-5); Urobilinogen,Urine Negative mg/dL (0.0-1.0); WBC,Urine < 1 /hpf (0-5)
[2024-08-28 07:09] VITALS: BP 111/65; PULSE 75; RESP 19; TEMP 36.9; O2SAT 97
[2024-08-28 07:38] LABS: HCG,Qualitative Serum Negative
[2024-08-28 07:40] VITALS: BP 111/65; PULSE 73; RESP 17; TEMP 36.9; O2SAT 98
[2024-08-28] MEDS: Milk Of Magnesia Susp 30 ML UDC PO (08:37)
[2024-08-28 08:38] VITALS: BP 111/68; PULSE 81; RESP 18; TEMP 37; O2SAT 98
== END 2024-08-28 08:53 | disposition home or self-care (01) ==
PROVIDERS: Emergency Medicine; Emergency Provider Family Medicine
DX: K80.20 Calculus of gallbladder without cholecystitis without obstruction (principal); K76.0 Fatty (change of) liver, not elsewhere classified
CPT/HCPCS: 36415; 76705; 80053; 81001; 81025; 82150; 82248; 83690; 83735; 84703; 85025; 99284; Q0162; A9270

== ENCOUNTER 2024-08-31 12:22 | Emergency (ER) | payer MEDICAID, SELFPAY ==
[2024-08-31 12:23] VITALS: BMI 28.4
--- NOTE | 2024-08-31 13:08 | PC.NURSE ---
Pt did not answer when name was called from lobby. Triage nurse Kamila stated Pt went to car and will come back.
--- NOTE | 2024-08-31 13:50 | PC.NURSE ---
Pt called for second time and still did not respond
--- NOTE | 2024-08-31 14:43 | PC.NURSE ---
no answer in lobby
== END 2024-08-31 14:43 | disposition left against medical advice (07) ==
LOC: SERX 15:46
PROVIDERS: Emergency Provider Emergency Medicine
DX: Z53.21 Procedure and treatment not carried out due to patient leaving prior to being seen by health care provider (principal)

== ENCOUNTER 2025-01-09 03:28 | Emergency (ER) | payer MEDICAID, SELFPAY ==
[2025-01-09 03:30] VITALS: BMI 20.7
[2025-01-09 03:36] VITALS: BP 104/70; PULSE 63; RESP 16; TEMP 36.6; O2SAT 99
--- NOTE | 2025-01-09 03:41 | XR_ITS ---
Examination: CT abdomen and pelvis without contrast. Coronal 3-D reconstructions. Sagittal 2-D reconstructions. Date and time of exam:January 09, 2025 0429 hours Comparison June 10, 2024. INDICATIONS: Abdominal pain beginning 4 days ago. CTDI: vol (mGy): 8.40. DLP: (mGycm): 469. Technique: Axial images of the abdomen have been obtained, 3 mm slice thickness Intravenous contrast material has not been administered. Low dose protocols were performed. One or more of the following dose reduction techniques were used; automated exposure control, adjustment of the mA and/or KV according to patient size, use of iterative reconstruction technique. Findings: No visualized or splenic lesion No gallstones No pancreatic or adrenal mass. No renal or ureteral calculi, no hydronephrosis No bowel obstruction Normal appendix I do not visualize a definite colitis pattern Anteverted uterus Contracted urinary bladder. The osseous structures are intact. IMPRESSION: No renal or ureteral calculi, no hydronephrosis Normal appendix No bowel obstruction or diverticulitis.
--- NOTE | 2025-01-09 04:06 | PD.EDRME ---
Rapid Medical Screening Exam RME Arrival date/time: 01/09/25 03:28 This is a case of 29-year-old female with no medical history came into the emergency room due to abdominal pain nausea vomiting for 4 days persistence of the symptoms this patient decided to start consult here in the emergency room Chief Complaint: Abdominal Pain Time Seen by Provider: 01/09/25 04:06 Vital signs: Vital Signs Temperature 97.8 F 01/09/25 03:36 Pulse Rate 63 01/09/25 03:36 Respiratory Rate 16 01/09/25 03:36 Blood Pressure 104/70 01/09/25 03:36 Pulse Oximetry (%) 99 01/09/25 03:36 Oxygen Delivery Method Room Air 01/09/25 03:36
[2025-01-09 04:10] LABS: Basophils # (Auto) 0.1 Thou/mm3 (0.0-0.2); Basophils % (Auto) 1 % (0-2.5); Eosinophils # (Auto) 0.1 Thou/mm3 (0.0-0.5); Eosinophils % (Auto) 1 % (0-10); Hematocrit 39.8 % (36.0-46.0); Hemoglobin 13.1 g/dL (12.0-16.0); Immature Granulocytes Auto 0.01 Thou/mm3 (0.00-0.00); Lymphocytes # (Auto) 3.5 Thou/mm3 (1.0-4.8); Lymphocytes % (Auto) 55 % (10-50); Mean Corpuscular HGB Conc 32.9 g/dl (31.0-37.0); Mean Corpuscular Hemoglobin 29.6 pg (25.0-35.0); Mean Corpuscular Volume 90 fL (80-100); Monocytes # (Auto) 0.6 Thou/mm3 (0.0-0.8); Monocytes % (Auto) 9 % (0-12); Neutrophils # (Auto) 2.1 Thou/mm3 (1.8-7.7); Neutrophils % (Auto) 33 % (37-80); Nucleated Red Blood Cell # 0.00 Thou/mm3 (0.00-0.00); Nucleated Red Blood Cell % 0 /100 WBC (0); Platelet Count 268 Thou/mm3 (140-440); RDW Standard Deviation 53.0 fL (36.4-46.3); Red Blood Count 4.42 Miln/mm3 (4.00-5.20); White Blood Count 6.3 Thou/mm3 (3.6-11.0)
--- NOTE | 2025-01-09 04:13 | EDNOTE_ITS ---
ED Abdominal Pain RME/HPI General Chief Complaint: Abdominal Pain Stated complaint: BILATERAL BACK/FLANK PAIN PELVIC PAIN Time seen by provider: 01/09/25 04:06 Arrival date/time: 01/09/25 03:28 RME / HPI RME / HPI narrative: 01/09/25 03:28 This is a case of 29-year-old female with no medical history came into the emergency room due to abdominal pain nausea vomiting for 4 days persistence of the symptoms this patient decided to start consult here in the emergency room --------- See MDM for HPI documentation. Related Data Home Medications ?Medication ?Instructions ?Recorded ?Confirmed prenat.vits,hernesto,[id number] 1 tab PO QDAY 01/19/23 01/19/23 amoxicillin 875 mg-potassium tab 02/16/23 clavulanate 125 mg tablet clotrimazole-betamethasone 1 applic topical 02/16/23 %-0.05 % topical cream ferrous sulfate 325 mg (65 mg mg 02/16/23 iron) tablet (FeroSul) vitamins no.170-iron 1 tab PO QDAY 02/16/23 0 02/16/23 fumarate 27 mg-folic acid 1 mg tablet (DermacinRx Prenatrix) Previous Rx's ?Medication ?Instructions ?Recorded hydrocodone 5 mg-acetaminophen 325 1 tab PO Q6H PRN pa in #14 tabs 07/09/23 mg tablet ibuprofen 800 mg tablet 800 mg PO Q8H PRN pain #20 t abs 07/09/23 ondansetron 4 mg disintegrating 4 mg PO Q8H PRN nausea and 08/24/23 tablet vomiting #10 tabs pantoprazole 20 mg tablet,delayed 20 mg PO QDAY #30 ta bs 08/25/23 release (Protonix) ondansetron 4 mg disintegrating 4 mg PO Q6H PRN nausea and 08/26/23 tablet vomiting #14 tabs albuterol sulfate 90 mcg/actuation 2 puff inhalation Q 6H PRN 04/29/24 aerosol inhaler (Ventolin HFA) shortness of breath or wheezing #8.5 grams cefdinir 300 mg capsule 300 mg PO BID #14 caps 05/05 cefdinir 300 mg capsule 300 mg PO BID #14 caps 05/07 amoxicillin 875 mg-potassium 1 tab PO Q12H #14 tabs clavulanate 125 mg tablet cyclobenzaprine 5 mg tablet 5 mg PO TID PRN muscle spa sm #20 06/09/24 tabs ibuprofen 800 mg tablet (IBU) 800 mg PO Q8H #20 tabs 0 06/09/24 omeprazole 20 mg capsule,delayed 20 mg PO BID #30 caps 08/28/24 release Allergies Allergy/AdvReac Type Severity Reaction Status Date / Time No Known Allergies Allergy Verified 01/09/25 03:34 Review of Systems Review of Systems Systems Reviewed: All systems reviewed, normal except as documented Past Medical History Past Medical History NEUROLOGIC: Negative Neurological Disorders or Seizures CARDIAC: Positive Cardiac Arrhythmia and Angina; Negative Cardiac Disorders or Congestive Heart Failure RESPIRATORY: Negative Chronic Obstructive Pulmonary Disease (COPD) or Asthma GASTROINTESTINAL: Positive Gastrointestinal Disorders and Obesity GENITOURINARY: Negative Genitourinary Disorders or Renal Disease REPRODUCTIVE: Positive Previous Pregnancies; Negative Endometriosis or Pelvic Inflammatory Disease MUSCULOSKELETAL: Negative Musculoskeletal Disorders ENDOCRINE: Negative Endocrine Disorders, Diabetes Mellitus Type 1 or Diabetes Mellitus Type 2 HEMATOLOGIC: Negative Blood Disorders or Sickle Cell Disease OTHER HISTORY: Positive Hospitalization; Negative Autoimmune Disease, Down Syndrome, Developmental Delay, Shingles, Falls, Blood Transfusions, Blood Transfusion Reaction, Anesthesia Reactions, Chemotherapy, Hyperbaric Therapy, MRSA, VRSA, Vancomycin-Resistant Enterococci, Clostridium Difficile or Cancer Family History FAMILY HISTORY: Positive Family Psychiatric Problems, Family Respiratory Disorders, Family Cancer and Family Surgery; Negative Family Cardiac Disorders, Family Gastrointestinal Problems or Family Anesthesia Reaction Surgical History SURGICAL: Positive Tubal Ligation and Section; Negative Cardiac Surgery, Open Heart Surgery, Coronary Artery Bypass Graft, Endocrine Surgery, Thyroidectomy, Ear Surgery, Abdominal Surgery, Nephrectomy, Joint Replacement, Neurologic Surgery, Brain Shunt or Mastectomy Social History SMOKING STATUS: Never smoker SECOND HAND EXPOSURE: No SUBSTANCE USE: does not use ED Exam Narrative Physical exam: See [facility] for physical exam documentation. Course Quality Measures none Orders Category Date Time Status Saline [Insert IV] NOW Care 01/09/25 04:42 Active Straight [In and Out Catheter] X1 Care 01/09/25 04:[address] abdomen pelvis wo con Stat Exams 01/09/25 03:41 Ordered CBC Stat Lab 01/09/25 04:03 Completed Comprehensive Metabolic Panel Stat Lab 01/09/25 04:03 Completed HCG Qualitative,Urine Stat Lab 01/09/25 04:29 Received Lipase Stat Lab 01/09/25 04:03 Completed Magnesium Stat Lab 01/09/25 04:43 Ordered Urinalysis Stat Lab 01/09/25 04:29 Received Ketorolac Inj [Toradol Inj] Med 01/09/25 04:42 Once 30 mg IVP X1 ONE Morphine Inj Med 01/09/25 04:42 Once 4 mg IVP X1 ONE Ondansetron Inj [Zofran Inj] Med 01/09/25 04:42 Once 4 mg IVP X1 ONE Sodium Chloride 0.9% 1000 ml [Ns] 1,000 ml Med 01/09/25 04:42 Ordered IV 999 mls/hr Vital Signs Vital signs: Vital Signs Temperature 97.8 F 01/09/25 03:36 Pulse Rate 63 01/09/25 03:36 Respiratory Rate 16 01/09/25 03:36 Blood Pressure 104/70 01/09/25 03:36 Pulse Oximetry (%) 99 01/09/25 03:36 Oxygen Delivery Method Room Air 01/09/25 03:36 Abdominal Pain MDM MDM Narrative MDM Narrative:: This section includes all my notes and documentations, including HPI, PE, and ED course. Jeronimo Obrien MD HPI: 29yo female with a history of gallstones, kidney stones here with bilateral flank pain and RUQ pain for the last few days. Patient has had nausea, vomiting, and decreased oral intake. She is concerned her gallstones and kidney stones are back. No other complaints reported. ROS: All negative except as documented in HPI. Physical Exam: General: Alert and oriented. Appears uncomfortable. Eyes: Conjunctivae and lids clear. ENT: No nasal congestion. Neck: Supple. Heart: RRR. Lungs: No respiratory distress. Good air movement. No rhonchi, wheezing, rales. Abdomen: Soft and RUQ tenderness. Normal bowel sounds. No distension. No rebound or guarding. Back: No CVA tenderness. Skin: Warm and dry. Neuro: Alert and oriented X 3. I ordered diagnostic tests, Morphine, Zofran, Toradol, and IV fluid. At 6 AM on 01/09/2025, the care of the patient was transferred to Dr. MILLS. Jeronimo Obrien MD Patient data External records reviewed:: [facility] previous records (Per chart review, patient was seen here on 08/28/24 for abdominal pain.) Clinical information provided by:: patient Social determinants that could affect healthcare access:: none Patient has the following chronic illnesses:: none How is presenting disease/condition affected by chronic disease/condition?: no chronic disease Evaluation data The following diagnostics were reviewed and interpreted by me:: lab results and radiology exam(s) Lab and/or radiology exams considered but not ordered:: none Interpretation Summary: Diagnostic tests are pending. Medications / Prescriptions Medications or Prescriptions considered but not ordered:: none Medication administrations:: Medication Administration History Sodium Chloride (Ns) 1,000 mls @ 999 mls/hr IV .Q1H1M ONE Stop: 01/09/25 05:42 Ketorolac Tromethamine (Ketorolac Inj 30 Mg/Ml Vial) 30 mg IVP X1 ONE Stop: 01/09/25 04:43 Morphine Sulfate (Morphine Sulf Inj 10 Mg/Ml Vial) 4 mg IVP X1 ONE Stop: 01/09/25 04:43 Ondansetron HCl (Ondansetron Inj 2 Mg/Ml Inj 2 Ml) 4 mg IVP X1 ONE; Protocol Stop: 01/09/25 04:43 Morphine, Zofran, Toradol, IV fluid Consultations Consultation(s) initiated? (list below): No Diagnosis Differential diagnosis abdominal pain: acute appendicitis, calculus of kidney, constipation, diverticulitis, endometriosis, gastroenteritis, pancreatitis, small bowel obstruction and other (Biliary colic) Most likely diagnosis given after review of the tests above:: Diagnostic tests are pending. Admission Indicated Admission indicated?: not indicated Explain why admission is indicated or not indicated:: Diagnostic tests are pending. Admission Request Was there a request for admission?: No Disposition Plan Disposition Plan: other (specify) (Signed out to Dr. Mills at 6 AM.) Discharge Plan Prescriptions/Referrals Prescriptions/Med Rec: No Action ferrous sulfate [FeroSul] 325 mg (65 mg iron) tablet Patient Comments: TAKE ONE TABLET BY MOUTH EVERY DAY clotrimazole-betamethasone 1-0.05 % cream TOPICAL Patient Comments: APPLY topically EVERY EVENING FOR TWO WEEKS TO THE affected AND surrounding AREAS of SKIN amoxicillin-pot clavulanate 875-125 mg tablet Patient Comments: TAKE ONE TABLET BY MOUTH EVERY TWELVE HOURS DermacinRx Prenatrix 27 mg iron- 1 mg tablet 1 tab PO QDAY Patient Comments: TAKE ONE TABLET BY MOUTH EVERY DAY VITAMIN ibuprofen 800 mg tablet 800 mg PO Q8H PRN (Reason: pain) Qty: 20 0RF hydrocodone-acetaminophen 5-325 mg tablet 1 tab PO Q6H MDD 3 PRN (Reason: pain) Qty: 14 0RF ondansetron 4 mg tablet,disintegrating 4 mg PO Q8H PRN (Reason: nausea and vomiting) Qty: 10 0RF pantoprazole [Protonix] 20 mg tablet,delayed release (DR/EC) 20 mg PO QDAY Qty: 30 0RF albuterol sulfate [Ventolin HFA] 90 mcg/actuation HFA aerosol inhaler 2 puff inhalation Q6H PRN (Reason: shortness of breath or wheezing) Qty: 8.5 0RF cefdinir 300 mg capsule 300 mg PO BID Qty: 14 0RF cefdinir 300 mg capsule 300 mg PO BID Qty: 14 0RF amoxicillin-pot clavulanate 875-125 mg tablet 1 tab PO Q12H Qty: 14 0RF ibuprofen [IBU] 800 mg tablet 800 mg PO Q8H Qty: 20 0RF cyclobenzaprine 5 mg tablet 5 mg PO TID PRN (Reason: muscle spasm) Qty: 20 0RF omeprazole 20 mg capsule,delayed release(DR/EC) 20 mg PO BID Qty: 30 0RF prenat.vits,hernesto,[id number] Tablet 1 tab PO QDAY ondansetron 4 mg tablet,disintegrating 4 mg PO Q6H PRN (Reason: nausea and vomiting) Qty: 14 0RF Referrals: Josue Moreau MD [Primary Care Provider] - In 1 week Problem List Clinical Impression: Abdominal pain Patient/Caregiver Discharge Instructions Print Language: Cook Islander
[2025-01-09 04:33] LABS: Alanine Aminotransferase 11 U/L (10-49); Albumin, Serum 4.1 gm/dL (3.5-5.0); Albumin/Globulin Ratio 1.8 (1.2-2.2); Alkaline Phosphatase 46 U/L (46-116); Anion Gap 6 (7-16); Aspartate Amino Transferase 15 U/L (0-34); BUN/Creatinine Ratio 17 Ratio (12-20); Bilirubin,Total 0.3 mg/dL (0.3-1.2); Blood Urea Nitrogen 12 mg/dL (9-23); Calcium 9.2 mg/dL (8.3-10.6); Calcium (Corrected) 9.2 mg/dL (8.5-10.1); Carbon Dioxide 28.6 mMol/L (20.0-31.0); Chloride 106 mMol/L (98-107); Creatinine (Component) 0.7 mg/dL (0.6-1.3); Estimated Creatinine Clearance 123.1 mL/min (>60); Globulin 2.3 gm/dL (2.3-3.5); Glucose 80 mg/dL (74-106); Lipase 32 U/L (12-53); Osmolality,Calculated 279 (275-295); Potassium 4.0 mMol/L (3.4-5.1); Sodium 141 mMol/L (136-145); Total Protein 6.4 gm/dL (5.7-8.2); eGFR > 60 See Note
[2025-01-09 04:43] LABS: Collection Type, Urine Clean Catch
--- NOTE | 2025-01-09 04:48 | XR_ITS ---
Examination: Abdomen sonogram, Limited Date and time of exam: January 09, 2025 0525 hours INDICATIONS: Right upper abdominal pain and nausea beginning 4 hours ago Technique: Real-time carl scale transabdominal sonographic images of the upper abdomen obtained. Findings: 10 mm gallstone Normal gallbladder wall Normal common bile duct 0.2 cm Pancreatic head 1.6 cm Liver 10.4 cm no liver lesions Normal hepatopedal portal venous flow Patent IVC IMPRESSION: Cholelithiasis, negative for cholecystitis
[2025-01-09 04:58] LABS: Bacteria,Urine 1+; Bilirubin,Urine Negative (Negative); Blood,Urine 1+ (Negative); Clarity,Urine Clear (Clear/Hazy); Color,Urine Lt-Yellow (Lt Yel-Yel); Glucose, Urine Negative (Negative); Ketones,Urine Negative (Negative); Leukocyte Esterase,Urine Positive (Negative); Nitrite,Urine Negative (Negative); PH,Urine 7.0 (5.0-7.0); Protein,Urine Negative (Neg - Trace); RBC,Urine 4 /hpf (0-3); Specific Gravity,Urine 1.027 (1.001-1.035); Squamous Epithelial Cell,Urine 6 /hpf (0-5); Urobilinogen,Urine Negative mg/dL (0.0-1.0); WBC,Urine 21 /hpf (0-5)
[2025-01-09] MEDS: ONDANSETRON INJ 2 MG/ML INJ 2 ML 4 MG IVP (04:59)
[2025-01-09] MEDS: MORPHINE SULF INJ 10 MG/ML VIAL 4 MG IVP (04:59)
[2025-01-09] MEDS: KETOROLAC INJ 30 MG/ML VIAL IVP (05:00)
[2025-01-09] MEDS: SODIUM CHLORIDE 0.9% 1000 ML 1,000 ML 999 ML IV (05:01)
--- NOTE | 2025-01-09 05:01 | PRELIM_ITS ---
CT scan of the abdomen and pelvis without intravenous contrast (axial sections with sagittal and coronal reformats) January 09, 2025 at 0429 hours Clinical History: Abdominal pain. Comparison: None available at the time of this report. Findings: The lung bases are clear. The liver, gallbladder, pancreas, spleen, kidneys and adrenals are unremarkable on this noncontrast study. No evidence of bowel obstruction. The appendix is within normal limits. Fecal loading. The uterus and ovaries are within normal limits. There is no mesenteric or retroperitoneal adenopathy. The urinary bladder is nondistended, limited evaluation. There is no free fluid or free air. The osseous structures are unremarkable. Mild thickening of the ascending colon wall associated with trace of peripheral fat stranding. Impression: Possible mild colitis of the ascending colon. Fecal loading. Report Electronically Signed By: Dwain Smith 01/09/2025 5:01:30 AM [EST]
[2025-01-09 05:04] LABS: HCG Qualitative,Urine Negative
[2025-01-09 05:12] LABS: Magnesium 1.3 mg/dL (1.6-2.6)
--- NOTE | 2025-01-09 06:28 | PD.EDADDENDU ---
Emergency Room Addendum Addendum Narrative: 0600: Care assumed from Dr. Obrien, the previous shift emergency physician. Past medical, surgical, social and family history reviewed. Vitals and home medications reviewed. I will assume the care of the patient at this time, pending labs/gallbladder ultrasound/final disposition. Please refer to the emergency department record for history and examination from initial visit.?The following addendum documentation note is intended to reflect any pending information, findings, or radiology results not included in the patient?s initial chart. Gallbladder ultrasound shows a gallstone in the gallbladder neck otherwise gallbladder wall and ducts are measuring within normal limits. Labs today are unremarkable, no acute findings. Urinalysis positive for infection with 21 WBC, positive Leukocyte esterase, and 1+ bacteria. Patient remains clinically stable throughout the emergency department visit. We reviewed all the results, analysis, and treatment plans. Patient is amenable to discharge with prescription for Cipro for UTI. Strict return precautions were outlined. Patient was discharged in stable condition.
[2025-01-09] MEDS: CIPROFLOXACIN HCL 250 MG TABLET 500 MG PO (06:34)
[2025-01-09] MEDS: MAGNESIUM OXIDE 400 MG TABLET PO (06:35)
[2025-01-09] MEDS: HYDROcodone/APAP 5/325 TABLET 1 TAB PO (06:36)
[2025-01-09 06:40] VITALS: BP 107/70; PULSE 70; RESP 16; TEMP 36.8; O2SAT 98
== END 2025-01-09 06:42 | disposition home or self-care (01) ==
PROVIDERS: Nurse Practitioner Family; Emergency Provider Emergency Medicine; PCP Family Medicine
DX: N39.0 Urinary tract infection, site not specified (principal); K80.20 Calculus of gallbladder without cholecystitis without obstruction
CPT/HCPCS: 36415; 74176; 76705; 80053; 81001; 81025; 83690; 83735; 85025; 96361; 96374; 96375; 99283; J1885; J2270; J2405; J7030; A9270

== ENCOUNTER 2025-05-05 06:20 | Emergency (ER) | payer MEDICAID, SELFPAY ==
[2025-05-05 06:22] VITALS: BP 117/77; PULSE 119; RESP 20; TEMP 36.7; O2SAT 100; BMI 32.3
--- NOTE | 2025-05-05 06:48 | EKG_ITS ---
[facility] Test Date: 2025-05-05 Pat Name: MANUEL LEMUS Department: Room: - Gender: Female [place] [employer]: : 1995 Requested By: Jun Moreau Order Number: [id number] Reading MD: Jun Moreau Measurements Intervals [place] Rate: 85 P: 50 IA: 156 QRS: 47 QRSD: 79 T: 26 QT: 366 QTc: 436 Interpretive Statements SINUS RHYTHM Compared to ECG 04/29/2024 02:00:33 Sinus arrhythmia no longer present /store/S0/[id number].pdf
--- NOTE | 2025-05-05 07:05 | PD.EDSOB ---
ED SOB =RME/HPI General Chief Complaint: Shortness of Breath/Dyspnea Stated Complaint: JAW PAIN, LIGHTHEADED, HEART RACING Time Seen by Provider: 05/05/25 06:23 Arrival date/time: 05/05/25 06:20 RME / HPI RME / HPI Narrative: 29-year-old female with a past medical history of having her tubes tied, asthma, anxiety, tachycardia, syncope, chronic abdominal pain, presents to the ER complaining of feeling like her heart is racing, jaw tightness, nausea, dizziness, having a hard time catching her breath, tingling when she was in the shower this morning in the setting of a lot of social stressors. Patient did have a single episode of emesis however she took Zofran prior to arrival and is no longer nauseous. Denies any syncope, chest pain, family history of early cardiac disease, recent travel/surgeries/immobilizations, history of leg swelling or blood clots or OCP use. Patient denies any smoking or drug abuse. Patient states she socially drinks. Related Data Home Medications ?Medication ?Instructions ?Recorded ?Confirmed prenat.vits,hernesto,[id number] 1 tab PO QDAY 01/19/23 01/19/23 amoxicillin 875 mg-potassium tab 02/16/23 clavulanate 125 mg tablet clotrimazole-betamethasone 1 applic topical 02/16/23 %-0.05 % topical cream ferrous sulfate 325 mg (65 mg mg 02/16/23 iron) tablet (FeroSul) vitamins no.170-iron 1 tab PO QDAY 02/16/23 02/16/23 fumarate 27 mg-folic acid 1 mg tablet (DermacinRx Prenatrix) Previous Rx's ?Medication ?Instructions ?Recorded hydrocodone 5 mg-acetaminophen 325 1 tab PO Q6H PRN pain #14 tabs 07/09/23 mg tablet ibuprofen 800 mg tablet 800 mg PO Q8H PRN pain #20 tabs 07/09/23 ondansetron 4 mg disintegrating 4 mg PO Q8H PRN nausea and 08/24/23 tablet vomiting #10 tabs pantoprazole 20 mg tablet,delayed 20 mg PO QDAY #30 tabs 08/25/23 release (Protonix) ondansetron 4 mg disintegrating 4 mg PO Q6H PRN nausea and 08/26/23 tablet vomiting #14 tabs albuterol sulfate 90 mcg/actuation 2 puff inhalation Q6H PRN 04/29/24 aerosol inhaler (Ventolin HFA) shortness of breath or wheezing #8.5 grams cefdinir 300 mg capsule 300 mg PO BID #14 caps 05/05/24 cefdinir 300 mg capsule 300 mg PO BID #14 caps 05/07/24 amoxicillin 875 mg-potassium 1 tab PO Q12H #14 tabs 05/13/24 clavulanate 125 mg tablet cyclobenzaprine 5 mg tablet 5 mg PO TID PRN muscle spasm #20 06/09/24 tabs ibuprofen 800 mg tablet (IBU) 800 mg PO Q8H #20 tabs 06/09/24 omeprazole 20 mg capsule,delayed 20 mg PO BID #30 caps 08/28/24 release ciprofloxacin HCl 500 mg tablet 500 mg PO BID #10 tabs 01/09/25 (Cipro) Allergies Allergy/AdvReac Type Severity Reaction Status Date / Time No Known Allergies Allergy Verified 01/09/25 03:34 ED Exam Narrative Physical exam: Constitutional: Patient alert and oriented. Well appearing. No acute distress. Not toxic appearing. Anxious appearing Head: Normocephalic, atraumatic. Eyes: Periorbital regions bilaterally normal to inspection. Conjunctiva clear bilaterally. Sclera anicteric bilaterally. Pupils equal, round, reactive to light bilaterally. Extraocular movements intact bilaterally. Mouth/Throat: Mucous membranes moist. No stridor or muffled voice. No trismus. Handling secretions without difficulty. Airway widely patent. Neck: Supple. Trachea midline. No JVD. No nuchal rigidity. Normal range of motion. Respiratory: Normal effort. No accessory muscle use or respiratory distress. Lungs clear to auscultation bilaterally without rhonchi, wheezes, or crackles. Cardiovascular: RRR. Normal S1/S2. No murmurs or rubs. Radial pulses intact bilaterally. Abdomen: Soft. Non-distended. Non-tender throughout. No pulsatile mass. No guarding or rebound. Negative Gonzales?s sign. Negative McBurney?s point tenderness. Negative Rovsing?s. Back: No midline tenderness or step-offs. No CVA tenderness to palpation bilaterally. Upper Extremities: No gross deformities. Lower Extremities: No gross deformities. No edema or calf tenderness. Neuro: Speech normal. No gross motor or sensory deficits to upper or lower extremities bilaterally. GCS 15. CN II?XII grossly intact. Skin: Warm, dry, normal color. Psych: Normal affect. Cooperative. Normal insight. Course Quality Measures none Orders Category Date Time Status EKG (ED ONLY) *Do not use* NOW Care 05/05/25 06:48 Completed EKG (ED ONLY) *Do not use* NOW Care 05/05/25 06:59 Completed Glucose [Bedside Blood Glucose] NOW Care 05/05/25 06:48 Completed EKG (ED Only) Stat Exams 05/05/25 06:48 Draft EKG (ED Only) Stat Exams 05/05/25 06:59 Ordered Vital Signs Vital signs: Vital Signs Temperature 98.1 F 05/05/25 06:22 Pulse Rate 119 H 05/05/25 06:22 Respiratory Rate 20 05/05/25 06:22 Blood Pressure 117/77 05/05/25 06:22 Pulse Oximetry (%) 100 05/05/25 06:22 Oxygen Delivery Method Room Air 05/05/25 06:22 PROCEDURES: EKG Interpretation #1: Date of EK05/05/25 Time of EK:55 Rate: 85 Interpretation: Interpreted by me EKG Impression: Normal sinus rhythm Additional EKG comment: No ST elevation, QTc 436 Shortness of Breath / Dyspnea MDM Narrative MDM Narrative:: 29-year-old female presents to the ER complaining of palpitations, jaw tightness, nausea, lightheadedness, hard time catching her breath which started while she was in the shower. Denies syncope, chest pain. EKG without acute ischemia or arrhythmia I considered atypical ACS however patient is low risk and declining lab work along with a normal EKG I doubt this diagnosis I considered PE however patient is Wells low risk and once again patient is declining lab work additionally she has no pleuritic chest pain. Additionally considered metabolic or electrolyte derangements however given normalization of vital signs while slowing down her breathing during my interview this is unlikely and she is declining lab work I considered acute asthma exacerbation however lungs are clear no prolonged expiratory phase and patient states this does not feel like her asthma Patient's symptoms self resolved during my initial interview and patient declines lab work or imaging which was offered she prefers to go to work at this time as she feels normal again, strict ER return precautions advised if she changes her mind or wants to perform a further workup or is open At the time of reassessment prior to discharge, the patient remains alert and oriented ?3 with GCS 15. Vitals are normal, pain is controlled, and the patient is tolerating oral intake without nausea or vomiting. The patient is agreeable to discharge and verbalizes understanding of the diagnosis, studies, treatment plan, medications (including side effects/precautions), and strict ER return precautions as discussed in the ED. All concerns were addressed, and the patient is comfortable with the plan. Patient data External records reviewed:: [facility] previous records Clinical information provided by:: patient Social determinants that could affect healthcare access:: none Patient has the following chronic illnesses:: As noted How is presenting disease/condition affected by chronic disease/condition?: exacerbated by Evaluation data The following diagnostics were reviewed and interpreted by me:: other (specify) Lab and/or radiology exams considered but not ordered:: Additional Labs and radiology considered, but not ordered as they were not clinically indicated at this time. Interpretation Summary: As noted Medications / Prescriptions Medications or Prescriptions considered but not ordered:: I ordered medications based on the patient?s clinical needs and assessment, as documented in the chart. For medications not prescribed, they were not indicated for the patient's current condition, and I determined they were unnecessary at this time to avoid potential risks or complications. Medication administrations:: As noted Consultations Consultation(s) initiated? (list below): No Diagnosis Shortness of Breath Differential Diagnosis: other Most likely diagnosis given after review of the tests above:: As noted Admission Indicated Admission indicated?: not indicated Admission Request Was there a request for admission?: No Disposition Plan Disposition Plan: Discharge Discharge Attestation Discharge Attestation: The patient and all family members were given an opportunity to ask questions and understood the discharge instructions. Discharge instructions specifically effects, indications for sooner follow up or return to the emergency department, and the expected course of current diagnosis. Patient condition: Stable Discharge Plan Plan Patient Disposition: HOME (Self Care) Patient condition on transfer: Stable Prescriptions/Referrals Prescriptions/Med Rec: No Action ferrous sulfate [FeroSul] 325 mg (65 mg iron) tablet Patient Comments: TAKE ONE TABLET BY MOUTH EVERY DAY clotrimazole-betamethasone 1-0.05 % cream TOPICAL Patient Comments: APPLY topically EVERY EVENING FOR TWO WEEKS TO THE affected AND surrounding AREAS of SKIN amoxicillin-pot clavulanate 875-125 mg tablet Patient Comments: TAKE ONE TABLET BY MOUTH EVERY TWELVE HOURS DermacinRx Prenatrix 27 mg iron- 1 mg tablet 1 tab PO QDAY Patient Comments: TAKE ONE TABLET BY MOUTH EVERY DAY VITAMIN ibuprofen 800 mg tablet 800 mg PO Q8H PRN (Reason: pain) Qty: 20 0RF hydrocodone-acetaminophen 5-325 mg tablet 1 tab PO Q6H MDD 3 PRN (Reason: pain) Qty: 14 0RF ondansetron 4 mg tablet,disintegrating 4 mg PO Q8H PRN (Reason: nausea and vomiting) Qty: 10 0RF pantoprazole [Protonix] 20 mg tablet,delayed release (DR/EC) 20 mg PO QDAY Qty: 30 0RF albuterol sulfate [Ventolin HFA] 90 mcg/actuation HFA aerosol inhaler 2 puff inhalation Q6H PRN (Reason: shortness of breath or wheezing) Qty: 8.5 0RF cefdinir 300 mg capsule 300 mg PO BID Qty: 14 0RF cefdinir 300 mg capsule 300 mg PO BID Qty: 14 0RF amoxicillin-pot clavulanate 875-125 mg tablet 1 tab PO Q12H Qty: 14 0RF ibuprofen [IBU] 800 mg tablet 800 mg PO Q8H Qty: 20 0RF cyclobenzaprine 5 mg tablet 5 mg PO TID PRN (Reason: muscle spasm) Qty: 20 0RF omeprazole 20 mg capsule,delayed release(DR/EC) 20 mg PO BID Qty: 30 0RF ciprofloxacin HCl [Cipro] 500 mg tablet 500 mg PO BID Qty: 10 0RF prenat.vits,hernesto,[id number] Tablet 1 tab PO QDAY ondansetron 4 mg tablet,disintegrating 4 mg PO Q6H PRN (Reason: nausea and vomiting) Qty: 14 0RF Problem List Clinical Impression: Panic attack Patient/Caregiver Discharge Instructions Education Materials: ED Panic Attack Additional Instructions: Follow up with your primary medical doctor within 24 hours. Return to the Emergency Room immediately for any new, worsening, continuing symptoms or any concerns at all. Return to the Emergency Room within 24 hours if you are unable to follow up with your primary medical doctor within 24 hours. Print Language: Indonesian Stand Alone Forms: Sarah Award Info., Patient Portal Info Letter PA/WAFER [employer]ISHING WORKER Supervising Physician PA/[employer]ISHING WORKER Supervising Physician: Dr. Bridges
[2025-05-05 07:22] VITALS: BP 124/85; PULSE 80; RESP 18; TEMP 36.8; O2SAT 99
== END 2025-05-05 08:20 | disposition home or self-care (01) ==
LOC: SERX 07:35
PROVIDERS: Emergency Provider Physician Assistant; PCP Physician Assistant Medical
DX: F41.0 Panic disorder [episodic paroxysmal anxiety] (principal)
CPT/HCPCS: 81025; 89051; 93005; 99282